=== PATIENT | female | born 1950 | race Caucasian/White ===

== ENCOUNTER 2018-07-15 12:05 | Outpatient (CLI) | payer MEDICARE | END 2018-07-15 23:59 | disposition home or self-care (01) | LOC: CFH 12:05 | PROVIDERS: ATTEND Family Medicine | DX: Z13.21 Encounter for screening for nutritional disorder (principal); R10.2 Pelvic and perineal pain; M81.0 Age-related osteoporosis without current pathological fracture | CPT/HCPCS: 76830; 77080; 77067 ==